=== PATIENT | male | born 1995 | race Caucasian/White ===

== ENCOUNTER 2017-05-08 17:28 | Emergency (ER) | payer SELFPAY ==
[~2017-05-08] VITALS: Ht 195.6 cm; Wt 129.3 kg
[~2017-05-08 17:28] MED LIST: ALBUTEROL-200 PUFFS/ IH; ETODOLAC200 MG PO; KEFLEX 250MG.250 MG PO; PREDNICOT10 MG PO; SEPTRA DS 800 M1 TAB PO
[2017-05-08 18:38] LABS: URINE BILIRUBIN - DIPSTICK NEGATIVE (NEG)
[2017-05-08 18:39] LABS: URINE BLOOD NEGATIVE (NEG)
--- NOTE | 2017-05-08 18:54 | Urgent Treatment Center Report ---
History of Present Issue Date/Time Seen by Provider 05/08/17 6764 Visit Reason Pt arrived:Walked Presenting Problem:PT IS C/O COUGH, VOMITING, AND BURNING WITH URINATION SINCE YESTERDAY Location if Accident: Onset of symptoms date/time:/ or onset unknown for:MEDICAL HX UNKNOWN Have you (or family members/close friends) recently traveled outside the [place]? N If Yes, where/when: Have you had exposure to infectious disease within the past month? TB? Other? Specify: Patient state that he ahs been having cough and sore throat along with vomiting and burning with urination. State that everyone in the house has had the "flu" and now he thinks he does too. State that he has always had trouble with UTI and protien in his urine so unsure if he may have a UTI. State that his throat is very sore and feels raw and now having sinus pain and congestion ALLERGIES Coded Allergies: No Known Allergies (05/08/17) Home Medications Reported Medications No Known Home Medications History Medical History General CAD? No Angina: No NH: No Hypertension? No Hyperlipidemia? No CHF? No DVT? No PE? No COPD? No Asthma? Yes Anemia? No GERD? No Gastric ulcers? No GI Bleed? No Hernia? No Thyroid Problems? No Hypothyroidism? No CVA? No Seizures? No Diabetes? No Renal Insuffiency? No UTI? No Stones? No BPH? No GB Disease: No Nephritic Syndrome? No Asplenia? No Hepatitis? No Sickle Cell Disease? No Arthritis? No Migraines? No Cataracts? No Glaucoma? No MRSA? Yes HIV? No TB? No Anxiety? No Depression? No Cancer? No More? No Immunization HX DT/Tetanus 1-4 YRS Surgical Hx Previous Surgery?Y T&A Social History Smoking Hx Smoker: Never Smoker Tobacco: No Alcohol Alcohol: No Review of Systems All Other Systems Reviewed and Negative Constitutional chills, fever ENT nose pain, nose congestion, throat pain, throat swelling. Respiratory cough, denies shortness of breath, denies wheezing Physical Exam Vital Signs Vital Signs Date Time Temp Pulse Resp B/P Pulse O2 O2 Flow FiO2 Ox Delivery Rate 05/08 1810 98.9 103 20 135/74 98 General Appearance normal appearance, WD/WN, no apparent distress Ear, Nose, Throat sinus pain/drainage, nasal congestion, pharyngeal erythema, tonsillar swelling Respiratory Status Yes: trachea midline, chest symmetrical, non tender chest. No: respiratory distress. Cardiovascular normal exam, regular rate/rhythm Neurologic alert, normal exam, oriented x 3 Medical Decision Making LABS/Meds/Orders Pt receiving controlled substance in ED? No Results/Orders Laboratory Tests 05/08/171852: Influenza Type A Ag NOT DETECTED, Influenza Type B Ag NOT DETECTED, Group A Strep Screen NOT DETECTED 05/08/171828: Urine Color YELLOW, Urine Appearance Clear, Urine pH 8.5, Ur Specific [place] 1.020, Urine Protein 3+ H, Urine Ketones NEGATIVE, Urine Blood NEGATIVE, Urine Nitrate NEGATIVE, Urine Bilirubin NEGATIVE, Urine Urobilinogen 1.0, Ur Leukocyte Esterase NEGATIVE, Urine Glucose NEGATIVE Orders Procedure Date/time Status [facility] STREP SCREEN 05/08 1853 Complete [facility] FLU A,B 05/08 1853 Complete [facility] URINE DIPSTICK 05/08 1829 Complete Departure Departure Time of Disposition 190 Disposition DC Home or Self Care(routine) Clinical Impression Primary Impression: Upper respiratory infection Qualifiers: URI type: acute pharyngitis Pharyngitis/tonsillitis etiology: unspecified etiology Qualified Code: J02.9 - Acute pharyngitis, unspecified Condition STABLE Patient Instructions Cough, DI for Fever (Symptom) -- Adult, Sore Throat Additional Instructions * Monitor Temp. Tylenol and/or Ibuprofen as needed. ER if fever is no less than 101 despite alternating Tylenol and Ibuprofen * Encourage fluids, water, Gatorade, powerade, pedialyte if infant/toddler/or child * Warm salt water gargles for throat irritation *Warm fluids *Sore throat lozenges *Sleep elevated *humidifier or vaporizer Lots of rest Increase fluids, water, Gatorade, powerade *Bromfed may cause drowsiness. Know how it effect you or your child. Before driving, caring for small children or sending your child to school *Your throat swab was sent to lab for culture. Those results area typically sent to your primary care physician. Be sure to follow up in 2-3 days if no improvement so they can review those results and treat if necessary If you dont have primary care I recommend you get one, but in the mean time you will have to return to a walk in clinic Follow up IMMEDIATELY for new or worsening of symptoms OR no noticeable improvement over the next 48-72 hours. 911 immediately for any life threatening symptoms such as chest pain or difficulty breathing Discharge Counseling Counseled pt/family regarding diagnosis, test results, medications/RX, home care, follow up needs Prescriptions Current Visit Scripts CEPHALEXIN (Keflex 500MG Capsule) 500 MG PO BID #20 CAP Methylprednisolone (Medrol Dose Enrique) 4 MG PO UD #1 ENRIQUE TAKE DIRECTED ON PACKAGING D-METHORPHAN HB/P-EPD HCL/BPM (Bromfed Dm Cough Syrup) 10 ML PO Q4HP PRN cough #120 SYR at 1913
--- NOTE | 2017-05-08 18:54 | Urgent Treatment Center Report ---
History of Present Issue Date/Time Seen by Provider 05/08/17 0244 Visit Reason Pt arrived:Walked Presenting Problem:PT IS C/O COUGH, VOMITING, AND BURNING WITH URINATION SINCE YESTERDAY Location if Accident: Onset of symptoms date/time:/ or onset unknown for:MEDICAL HX UNKNOWN Have you (or family members/close friends) recently traveled outside the [place]? N If Yes, where/when: Have you had exposure to infectious disease within the past month? TB? Other? Specify: Patient state that he ahs been having cough and sore throat along with vomiting and burning with urination. State that everyone in the house has had the "flu" and now he thinks he does too. State that he has always had trouble with UTI and protien in his urine so unsure if he may have a UTI. State that his throat is very sore and feels raw and now having sinus pain and congestion ALLERGIES Coded Allergies: No Known Allergies (05/08/17) Home Medications Reported Medications No Known Home Medications History Medical History General CAD? No Angina: No MA: No Hypertension? No Hyperlipidemia? No CHF? No DVT? No PE? No COPD? No Asthma? Yes Anemia? No GERD? No Gastric ulcers? No GI Bleed? No Hernia? No Thyroid Problems? No Hypothyroidism? No CVA? No Seizures? No Diabetes? No Renal Insuffiency? No UTI? No Stones? No BPH? No GB Disease: No Nephritic Syndrome? No Asplenia? No Hepatitis? No Sickle Cell Disease? No Arthritis? No Migraines? No Cataracts? No Glaucoma? No MRSA? Yes HIV? No TB? No Anxiety? No Depression? No Cancer? No More? No Immunization HX DT/Tetanus 1-4 YRS Surgical Hx Previous Surgery?Y T&A Social History Smoking Hx Smoker: Never Smoker Tobacco: No Alcohol Alcohol: No Review of Systems All Other Systems Reviewed and Negative Constitutional chills, fever ENT nose pain, nose congestion, throat pain, throat swelling. Respiratory cough, denies shortness of breath, denies wheezing Physical Exam Vital Signs Vital Signs Date Time Temp Pulse Resp B/P Pulse O2 O2 Flow FiO2 Ox Delivery Rate 05/08 1810 98.9 103 20 135/74 98 General Appearance normal appearance, WD/WN, no apparent distress Ear, Nose, Throat sinus pain/drainage, nasal congestion, pharyngeal erythema, tonsillar swelling Respiratory Status Yes: trachea midline, chest symmetrical, non tender chest. No: respiratory distress. Cardiovascular normal exam, regular rate/rhythm Neurologic alert, normal exam, oriented x 3 Medical Decision Making LABS/Meds/Orders Pt receiving controlled substance in ED? No Results/Orders Laboratory Tests 05/08/171852: Influenza Type A Ag NOT DETECTED, Influenza Type B Ag NOT DETECTED, Group A Strep Screen NOT DETECTED 05/08/171828: Urine Color YELLOW, Urine Appearance Clear, Urine pH 8.5, Ur Specific [place] 1.020, Urine Protein 3+ H, Urine Ketones NEGATIVE, Urine Blood NEGATIVE, Urine Nitrate NEGATIVE, Urine Bilirubin NEGATIVE, Urine Urobilinogen 1.0, Ur Leukocyte Esterase NEGATIVE, Urine Glucose NEGATIVE Orders Procedure Date/time Status [facility] STREP SCREEN 05/08 1853 Complete [facility] FLU A,B 05/08 1853 Complete [facility] URINE DIPSTICK 05/08 1829 Complete Departure Departure Time of Disposition 190 Disposition DC Home or Self Care(routine) Clinical Impression Primary Impression: Upper respiratory infection Qualifiers: URI type: acute pharyngitis Pharyngitis/tonsillitis etiology: unspecified etiology Qualified Code: J02.9 - Acute pharyngitis, unspecified Condition STABLE Patient Instructions Cough, DI for Fever (Symptom) -- Adult, Sore Throat Additional Instructions * Monitor Temp. Tylenol and/or Ibuprofen as needed. ER if fever is no less than 101 despite alternating Tylenol and Ibuprofen * Encourage fluids, water, Gatorade, powerade, pedialyte if infant/toddler/or child * Warm salt water gargles for throat irritation *Warm fluids *Sore throat lozenges *Sleep elevated *humidifier or vaporizer Lots of rest Increase fluids, water, Gatorade, powerade *Bromfed may cause drowsiness. Know how it effect you or your child. Before driving, caring for small children or sending your child to school *Your throat swab was sent to lab for culture. Those results area typically sent to your primary care physician. Be sure to follow up in 2-3 days if no improvement so they can review those results and treat if necessary If you dont have primary care I recommend you get one, but in the mean time you will have to return to a walk in clinic Follow up IMMEDIATELY for new or worsening of symptoms OR no noticeable improvement over the next 48-72 hours. 911 immediately for any life threatening symptoms such as chest pain or difficulty breathing Discharge Counseling Counseled pt/family regarding diagnosis, test results, medications/RX, home care, follow up needs Prescriptions Current Visit Scripts CEPHALEXIN (Keflex 500MG Capsule) 500 MG PO BID #20 CAP Methylprednisolone (Medrol Dose Enrique) 4 MG PO UD #1 ENRIQUE TAKE DIRECTED ON PACKAGING D-METHORPHAN HB/P-EPD HCL/BPM (Bromfed Dm Cough Syrup) 10 ML PO Q4HP PRN cough #120 SYR at 1913
[2017-05-08 18:57] LABS: UTC STREP SCREEN NOT DETECTED (NOTDETECTED)
[2017-05-08 19:13] VITALS: BP 140/77
[2017-05-08] MEDS ORDERED: KEFLEX 500MG.500 MG PO (19:13)
[2017-05-08] MEDS ORDERED: MEDROL 4MG. DOSE4 MG PO (19:13)
[2017-05-08] MEDS ORDERED: BROMFED DM COU118 ML PO (19:13)
== END 2017-05-08 19:16 | disposition home or self-care (01) ==
LOC: UTC 17:28
PROVIDERS: Nurse Practitioner
DX: J02.9 Acute pharyngitis, unspecified (principal); J45.909 Unspecified asthma, uncomplicated